=== PATIENT | male | born 1985 | race Hispanic/Latino ===

== ENCOUNTER 2018-10-15 21:38 | Emergency (ER) | payer MEDICAID ==
[2018-10-15] MEDS ORDERED: Albuterol-Ipratrop 3 mg / 0.5 (3 ml) UD INH STA (22:00)
--- NOTE | 2018-10-15 22:38 | ED PDOC ---
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 Patient reports having cough productive of clear sputum. Denies hemoptysis. He reports leg swelling that is ongoing for about a month ever since he became homeless and had to spend a lot of time walking. PMD: none Past Medical History Reviewed: Historical Data, Nursing Documentation, Vital Signs Vital Signs: Last Vital Signs Temp 98.8 F 10/15/18 21:42 Pulse 87 10/15/18 21:42 Resp 16 10/15/18 21:42 BP 140/72 10/15/18 21:42 Pulse Ox 98 10/15/18 21:42 Primary Care Provider: FAMILY PROVIDER,NO - Medical History PMH: Pulmonary Embolism (8 years ago) - Surgical History Other surgeries: Left knee meniscus repair - Family History Family History: States: Unknown Family Hx - Social History Alcohol: None Drugs: Denies - Home Medications Home Medications: Ambulatory Orders Medication Instructions Recorded Cetirizine HCl [Zyrtec] 10 mg PO DAILY #10 capsule 10/16/18 Albuterol HFA [Ventolin HFA 90 1 - 2 puff IH Q6 PRN #1 inhaler 10/18/18 mcg/actuation (8 g)] Albuterol HFA [Ventolin HFA 90 2 puff IH Q4H #1 puff 10/18/18 mcg/actuation (8 g)] Azithromycin 250 mg PO DAILY #4 tablet 10/18/18 Fluticasone/Salmeterol [Advair 1 each IH Q12 #1 blst.w.dev 10/18/18 250-50 Diskus] Methylprednisolone [Medrol] 4 mg PO ASDIR #1 pkg 10/18/18 - Allergies Allergies/Adverse Reactions: Allergies Allergy/AdvReac Type Severity Reaction Status Date / Time cefaclor [From [facility]] Allergy RASH Verified 10/16/18 12:50 Review of Systems ROS Statement: Except As Marked, All Systems Reviewed And Found Negative (as per HPI) Cardiovascular: Positive for: Chest Pain (Chest tightness) Respiratory: Positive for: Cough (productive of clear sputum), Shortness of Breath. Negative for: Hemoptysis Musculoskeletal: Positive for: Other (Leg swelling) Physical Exam - Reviewed Nursing Documentation Reviewed: Yes Vital Signs Reviewed: Yes - Physical Exam Appears: Positive for: In Acute Distress (Mild respiratory distress; morbidly obese) Head Exam: Positive for: ATRAUMATIC, NORMOCEPHALIC Skin: Positive for: Warm, Dry Eye Exam: Positive for: EOMI, PERRL Neck: Positive for: Painless ROM, Supple Cardiovascular/Chest: Positive for: Regular Rate, Rhythm (Regular rhythm), Tachycardia Respiratory: Positive for: Rhonchi (faint), Wheezing (scattered), Other (Episodes of hacking cough; distant breath sounds). Negative for: Rales Gastrointestinal/Abdominal: Positive for: Soft. Negative for: Tenderness Back: Positive for: Normal Inspection. Negative for: Decreased ROM Extremity: Positive for: Other (Bilateral lower leg 1+ pitting edema; venous stasis changes to the skin) Lymphatic: Negative for: Adenopathy Neurological/Psych: Positive for: Awake, Alert. Negative for: Motor/Sensory Deficits - Laboratory Results Result Diagrams: 10/15/18 22:30 10/15/18 22:30 - ECG ECG: Positive for: Interpreted By Me ECG Rhythm: Positive for: Normal QRS, Normal ST Segment, Sinus Rhythm (with low voltage) Rate: 86 O2 Sat by Pulse Oximetry: 98 (RA) Pulse Ox Interpretation: Normal Medical Decision Making Medical Decision Making: Initial Impression: Shortness of breath and cough Differential includes reactive airway disease, bronchitis, pneumonia, PE, and CHF Clinical Impression: Dyspnea Initial Plan: --Arterial blood gas shock panel stat --EKG --BNP --CMP --Magnesium stat --Phosphorous stat --TSH --Troponin --CBC --PTT --Prothrombin time --Albuterol 9mL INH --Solumedrol 125mg IV --Blood culture --Peak flow --Influenza A B stat Endorsed to Dr Retana pending ER workup reassessment and final ER disposition ------ Scribe Attestation: Documented by Maikol Pierre acting as a scribe for Nu Castle MD. Provider Scribe Attestation: All medical record entries made by the Scribe were at my direction and personally dictated by me. I have reviewed the chart and agree that the record accurately reflects my personal performance of the history, physical exam, medical decision making, and the department course for this patient. I have also personally directed, reviewed, and agree with the discharge instructions and disposition. Disposition - Clinical Impression Clinical Impression: Dyspnea - Disposition Disposition: Transfer of Care Disposition Time: 23:00 Condition: STABLE
[2018-10-15] MEDS ORDERED: Albuterol-Ipratrop 3 mg / 0.5 (3 ml) UD ONE (22:41)
[2018-10-15 22:46] LABS: BASO % 0.5 % (0.0-2.0); EOS # 0.3 K/uL (0.0-0.7); EOS % 3.2 % (0.0-4.0); LYMPH # 2.3 K/uL (1.0-4.3); LYMPH % 26.5 % (20.0-40.0); MEAN CELL VOLUME 87.7 fl (80.0-94.0); MEAN CORPUSCULAR HEMOGLOBIN 28.9 pg (27.0-31.0); MEAN CORPUSCULAR HGB CONC 32.9 g/dL (33.0-37.0); MEAN PLATELET VOLUME 8.2 fl (7.2-11.7); MONO # 0.5 K/uL (0.0-0.8); MONO % 6.1 % (0.0-10.0); NEUT # 5.6 K/uL (1.8-7.0); NEUT % 63.7 % (50.0-75.0); RBC 4.84 Mil/uL (4.40-5.90); RED CELL DISTRIBUTION WIDTH 13.6 % (11.5-14.5); WHITE BLOOD COUNT 8.7 K/uL (4.8-10.8)
[2018-10-15 22:56] LABS: PROTHROMBIN TIME 11.8 Seconds (9.8-13.1)
[2018-10-15 22:57] LABS: ALB/GLOB RATIO 1.4 (1.0-2.1); ALBUMIN 4.1 g/dL (3.5-5.0); ALT/SGPT 41 U/L (21-72); AST/SGOT 27 U/L (17-59); BLOOD UREA NITROGEN 18 mg/dl (9-20); CALCIUM 9.3 mg/dL (8.4-10.2); GFR NON-AFRICAN AMERICAN > 60
[2018-10-15 22:59] LABS: PARTIAL THROMBOPLASTIN TIME 35.7 Seconds (25.6-37.1)
[2018-10-15 23:11] LABS: B-TYPE NATRIURETIC PEPTIDE 71.9 pg/ml (0-450)
--- NOTE | 2018-10-15 23:11 | ED PDOC ---
- Laboratory Results Result Diagrams: 10/15/18 22:30 10/15/18 22:30 Lab Results: PT 11.8 Seconds (9.8-13.1) 10/15/18 22:30 INR 1.0 10/15/18 22:30 APTT 35.7 Seconds (25.6-37.1) 10/15/18 22:30 Total Bilirubin 0.4 mg/dl (0.2-1.3) 10/15/18 22:30 AST 27 U/L (17-59) 10/15/18 22:30 ALT 41 U/L (21-72) 10/15/18 22:30 Alkaline Phosphatase 66 U/L (38-126) 10/15/18 22:30 Total Protein 7.0 G/DL (6.3-8.2) 10/15/18 22:30 Albumin 4.1 g/dL (3.5-5.0) 10/15/18 22: Globulin 2.9 gm/dL (2.2-3.9) 10/15/18 22: Albumin/Globulin Ratio 1.4 (1.0-2.1) 10/15/18 22:30 - ECG O2 Sat by Pulse Oximetry: 98 (RA) Pulse Ox Interpretation: Normal Medical Decision Making Medical Decision Makin Patient care endorsed from Dr. Castle pending CT scan and re-evaluation. 0147 CTA OF THE CHEST WITH IV CONTRAST CLINICAL HISTORY: Chest pain. History of pulmonary embolus. TECHNIQUE: Axial and reformatted sagittal and coronal images of the chest obtained after bolus IV contrast administration. FINDINGS: Normal enhancement of the main pulmonary artery and right and left pulmonary arteries. Suboptimal enhancement of the bilateral peripheral pulmonary arteries, technical factors. There is no large central demonstrated pulmonary embolism. Normal thoracic aorta and visualized great vessels. There is no demonstrated aortic dissection. Normal heart and pericardium. Normal mediastinum. Normal hilar regions. Normal visualized trachea and bronchi. The lungs are well expanded. Normal pulmonary parenchyma. Normal pleura. Normal chest wall structures. Mild diffuse spondylosis. Mild hepatomegaly. Moderate splenomegaly measuring 16.3 cm. IMPRESSION: No demonstrated large central pulmonary embolism or arterial dissection. Electronically signed on October 16, 2018 1:37:20 AM EDT by: Wilfrido Jackson M.D., Certified by ABR, MSK, Neuroradiology 0153 Patient presents improvement in symptom and stable for discharge. Patient diagnosed with asthma exacerbation Scribe Attestation: Documented by Jamila Flaherty, acting as a scribe for Nikhil Retana MD Provider Scribe Attestation: All medical record entries made by the Scribe were at my direction and personally dictated by me. I have reviewed the chart and agree that the record accurately reflects my personal performance of the history, physical exam, medical decision making, and the department course for this patient. I have also personally directed, reviewed, and agree with the discharge instructions and disposition. Disposition - Clinical Impression Clinical Impression: Asthma exacerbation - POA Present On Arrival: None - Disposition Referrals: [facility] [Outside] Disposition: Routine/Home Disposition Time: 01:53 Condition: STABLE Prescriptions: Albuterol HFA [Ventolin HFA 90 mcg/actuation (8 g)] 1 - 2 puff IH Q6 PRN #1 inhaler PRN Reason: Shortness Of Breath Methylprednisolone [Medrol Dosepak] 4 mg PO ASDIR #1 pkg Instructions: Asthma in Adults Forms: [facility] (Serbian)
[2018-10-16] MEDS ORDERED: Iodixanol 320 MG/ML 100 ML BOTTLE IV ONE (00:06)
[2018-10-16] MEDS ORDERED: Sodium Chloride 0.9% 50 ML IV ONE (00:06)
[2018-10-16 00:30] LABS: ABG ALLEN TEST YES; ARTERIAL BLOOD GAS HCO3 29.5 mmol/L (21-28); ARTERIAL BLOOD GAS O2 SAT 97.3 % (95-98); ARTERIAL BLOOD GAS PCO2 46 mm/Hg (35-45); ARTERIAL BLOOD GAS PH 7.44 (7.35-7.45); ARTERIAL BLOOD GAS PO2 60 mm/Hg (80-100); ARTERIAL BLOOD GAS TCO2 32.6 mmol/L (22-28)
[2018-10-16 02:12] VITALS: BP 153/82; RESP 18; TEMP 98.2
[2018-10-16] MEDS ORDERED: Albuterol-Ipratrop 3 mg / 0.5 (3 ml) UD ONE (07:23)
--- NOTE | 2018-10-16 10:38 | CARD ---
APPROVED REPORT Date of service: 10/15/2018 EKG Measurement Heart [id number] <Conclusion> Normal sinus rhythm Low voltage QRS Borderline ECG
--- NOTE | 2018-10-16 14:27 | CT ---
Date of service: 10/16/2018 PROCEDURE: CT Chest with contrast (Pulmonary Angiogram) HISTORY: SOB h/o pulmonary embolism COMPARISON: None available. TECHNIQUE: Axial computed tomography images were obtained of the chest in the pulmonary arterial phase of enhancement. Coronal and sagittal reformatted images were created and reviewed. Intravenous contrast dose: 95 cc Visipaque 320 Radiation dose: Total exam DLP = 742.62 mGy-cm. This CT exam was performed using one or more of the following dose reduction techniques: Automated exposure control, adjustment of the mA and/or kV according to patient size, and/or use of iterative reconstruction technique. FINDINGS: Study is quite limited due to large body habitus and suboptimal opacification of the pulmonary arteries PULMONARY ARTERIES: The pulmonary trunk, right and left main, lobar and proximal segmental branches of the pulmonary arteries appear patent so far as can be seen with no definitive radiographic evidence of acute central pulmonary embolus. Note that the distal segmental and subsegmental branches are poorly delineated AORTA: No acute findings. No thoracic aortic aneurysm. No aortic atherosclerotic calcification or mural plaque present. LUNGS: 3.3 mm subpleural nodule right anterolateral upper lobe.. Follow-up CT scan in six months could be performed to assess stability. No acute infiltrates. PLEURAL SPACES: Unremarkable. No effusion or pneumothorax. HEART: Unremarkable. No cardiomegaly. No significant pericardial effusion. LYMPH NODES: No lymphadenopathy. BONES, CHEST WALL: Mild multilevel degenerative spondylosis of the thoracic spine. OTHER FINDINGS: Spleen is enlarged measuring over 16 cm in AP dimension. IMPRESSION: Limited study demonstrating no definitive radiographic evidence of acute central pulmonary embolus. 3.3 mm subpleural nodule right anterolateral upper lobe.. Follow-up CT scan in six months could be performed to assess stability. No acute infiltrates. Splenomegaly
[2018-10-17 00:50] VITALS: O2SAT 98
[2018-10-20 17:00] VITALS: PULSE 86
== END 2018-10-16 02:10 | disposition home or self-care (01) ==
LOC: H.ER 21:38
DX: R06.03 Acute respiratory distress (principal); J44.9 Chronic obstructive pulmonary disease, unspecified; J45.901 Unspecified asthma with (acute) exacerbation; Z59.0 Homelessness; Z79.899 Other long term (current) drug therapy; Z86.711 Personal history of pulmonary embolism; Z88.1 Allergy status to other antibiotic agents
CPT/HCPCS: 36600; 71275; 80053; 82803; 83735; 83880; 84100; 84443; 84484; 85025; 85610; 85730; 87040; 87804; 93005; 94640; 96374; 99284; J2930; Q9967

== ENCOUNTER 2018-10-16 06:31 | Emergency (ER) | payer MEDICAID ==
[2018-10-16] MEDS ORDERED: Albuterol-Ipratrop 3 mg / 0.5 (3 ml) UD IH STA ×2 (07:14→07:15)
--- NOTE | 2018-10-16 07:18 | ED PDOC ---
HPI: SOB/CHF/COPD Time Seen by Provider: 10/16/18 07:11 History Per: Patient Onset/Duration Of Symptoms: Days (2) Current Symptoms Are (Timing): Still Present Severity: Mild Additional Complaint(s): SOB assoc with wheezing and cough productive yellow sputum x 2-3 days. denies fever. seen last night with same with CT chest neg for PE. Improved with nebulizer txs. Past Medical History - Medical History PMH: Pulmonary Embolism (8 years ago) - Family History Family History: States: Unknown Family Hx - Home Medications Home Medications: Ambulatory Orders Medication Instructions Recorded Albuterol HFA [Ventolin HFA 90 1 - 2 puff IH Q6 PRN #1 inhaler 10/16/18 mcg/actuation (8 g)] Albuterol HFA [Ventolin HFA 90 2 puff IH Q4H #1 puff 10/16/18 mcg/actuation (8 g)] Cetirizine HCl [Zyrtec] 10 mg PO DAILY #10 capsule 10/16/18 Methylprednisolone [Medrol Dosepak] 4 mg PO ASDIR #1 pkg 10/16/18 Prednisone 50 mg PO DAILY #5 tab 10/16/18 - Allergies Allergies/Adverse Reactions: Allergies Allergy/AdvReac Type Severity Reaction Status Date / Time cefaclor [From [facility]] Allergy RASH Verified 10/15/18 21:43 Review of Systems ROS Statement: Except As Marked, All Systems Reviewed And Found Negative Respiratory: Positive for: Cough, Shortness of Breath, Wheezing Physical Exam - Reviewed Nursing Documentation Reviewed: Yes Vital Signs Reviewed: Yes - Physical Exam Appears: Positive for: Non-toxic, No Acute Distress Head Exam: Positive for: ATRAUMATIC, NORMAL INSPECTION, NORMOCEPHALIC Skin: Positive for: Normal Color, Warm, DRY Eye Exam: Positive for: EOMI, Normal appearance, PERRL ENT: Positive for: Normal ENT Inspection Neck: Positive for: Normal, Painless ROM Cardiovascular/Chest: Positive for: Regular Rate, Rhythm Respiratory: Positive for: Wheezing (Mild). Negative for: Respiratory Distress Gastrointestinal/Abdominal: Positive for: Normal Exam, Soft Back: Positive for: Normal Inspection Extremity: Positive for: Other (Erythema to pretibial area bialt. No calf tenderness) Neurological/Psych: Positive for: Awake, Alert, Normal Tone - Progress Re-evaluation Time: 10:49 Condition: Improved (feels better no SOB) Medical Decision Making Medical Decision Making: No evidence of PE on CT done earlier. Pulse ox 95% RA. Will add prednisone to inhaler with outpt f/u Disposition - Clinical Impression Clinical Impression: Bronchospasm - Patient ED Disposition Is Patient to be Admitted: No Counseled Patient/Family Regarding: Diagnosis, Need For Followup, Rx Given - Disposition Referrals: [facility] [Outside] Disposition: Routine/Home Disposition Time: 10:51 Condition: FAIR Prescriptions: Albuterol HFA [Ventolin HFA 90 mcg/actuation (8 g)] 2 puff IH Q4H #1 puff Cetirizine HCl [Zyrtec] 10 mg PO DAILY #10 capsule Prednisone 50 mg PO DAILY #5 tab Instructions: Asthma in Adults
[2018-10-16 08:00] VITALS: TEMP 98.9
[2018-10-16 10:06] VITALS: BP 130/60
[2018-10-16 11:33] VITALS: PULSE 78; RESP 18; O2SAT 95
--- NOTE | 2018-10-25 14:21 | CARD ---
APPROVED REPORT Date of service: 10/16/2018 EKG Measurement Heart [id number] <Conclusion> Normal sinus rhythm Low voltage QRS Borderline ECG
== END 2018-10-16 11:25 | disposition home or self-care (01) ==
LOC: H.ER 06:31
DX: J98.01 Acute bronchospasm (principal); Z86.711 Personal history of pulmonary embolism; Z88.1 Allergy status to other antibiotic agents

== ENCOUNTER 2018-10-16 12:28 | Observation (INO) | payer MEDICAID ==
[2018-10-16] MEDS ORDERED: Albuterol-Ipratrop 3 mg / 0.5 (3 ml) UD ONE (13:12)
[2018-10-16] MEDS ORDERED: Albuterol 0.083% Inhal Sol (2.5 mg/3 mL) UD INH STA (13:13)
[2018-10-16] MEDS ORDERED: Albuterol-Ipratrop 3 mg / 0.5 (3 ml) UD INH STA (13:14)
[2018-10-16] MEDS ORDERED: Albuterol 0.083% Inhal Sol (2.5 mg/3 mL) UD ONE ×2 (13:52→16:52)
[2018-10-16] MEDS ORDERED: Promethazine DM 6.25 mg-15 mg/5 ml Syrup PO STA (14:19)
--- NOTE | 2018-10-16 14:32 | ED PDOC ---
HPI: CCC, URI, Sore Throat Time Seen by Provider: 10/16/18 13:02 Chief Complaint (Nursing): Abdominal Pain Chief Complaint (Provider): Coughing History Per: Patient History/Exam Limitations: no limitations Onset/Duration Of Symptoms: Days Current Symptoms Are (Timing): Still Present Location Of Pain: None Associated Symptoms: Cough, Sputum, Vomiting. denies: Neck Pain, Sinus Drainage, Nasal Congestion, Nausea, Diarrhea Severity: Moderate Additional History Per: Patient Additional Complaint(s): 33 y/o male presents to the ED c/o persistent coughing and vomiting. Patient states he was discharged from ED an hour ago, and could not make it out of the ED due to shortness of breath and persistent cough. Patient was also seen on 10/15-10/16 for same and had full work-up including CT chest to rule PE and it was negative for PE. He states he has been coughing persistently since Wednesday, denies fever and chest pain. Denies abdominal pain, incontrary to triage note. Additionally patient lives in the care home in [place]. Past Medical History Vital Signs: Last Vital Signs Temp 98.1 F 10/16/18 12:46 Pulse 91 H 10/16/18 12:46 Resp 18 10/16/18 12:46 BP 138/93 H 10/16/18 12:46 Pulse Ox 95 10/16/18 12:46 Primary Care Provider: FAMILY PROVIDER,NO - Medical History PMH: Asthma, Pulmonary Embolism (8 years ago) - Family History Family History: States: Unknown Family Hx - Immunization History Hx Tetanus Toxoid Vaccination: No Hx Influenza Vaccination: No Hx Pneumococcal Vaccination: No - Home Medications Home Medications: Ambulatory Orders Medication Instructions Recorded Albuterol HFA [Ventolin HFA 90 1 - 2 puff IH Q6 PRN #1 inhaler 10/16/18 mcg/actuation (8 g)] Albuterol HFA [Ventolin HFA 90 2 puff IH Q4H #1 puff 10/16/18 mcg/actuation (8 g)] Cetirizine HCl [Zyrtec] 10 mg PO DAILY #10 capsule 10/16/18 Methylprednisolone [Medrol Dosepak] 4 mg PO ASDIR #1 pkg 10/16/18 Prednisone 50 mg PO DAILY #5 tab 10/16/18 Promethazine DM [Phenergan DM 5 ml PO Q6H PRN #100 ml 10/16/18 Syrup] - Allergies Allergies/Adverse Reactions: Allergies Allergy/AdvReac Type Severity Reaction Status Date / Time cefaclor [From [facility]] Allergy RASH Verified 10/16/18 12:50 Curb-65 Severity Score - CURB-65 Severity Score Confusion: No Bun >19mg/dl (>7mmol/L): No Respiratory Rate greater than/equal to 30: No Systolic BP <90 or Diastolic BP less than/equal 60mmHg: No Age >64: No Curb-65 Score: 0 Percentage 30-day mortality: 0.6% Review of Systems ROS Statement: Except As Marked, All Systems Reviewed And Found Negative Constitutional: Positive for: Weakness. Negative for: Fever, Chills, Malaise ENT: Negative for: Ear Pain, Ear Discharge, Nose Pain, Nose Discharge, Nose Congestion, Mouth Pain, Mouth Swelling, Throat Pain, Throat Swelling Cardiovascular: Negative for: Chest Pain, Palpitations, Light Headedness Respiratory: Positive for: Cough, Shortness of Breath, SOB with Exertion, Sputum (yellow/white sputum ), Wheezing. Negative for: Pleuritic Pain Gastrointestinal: Positive for: Vomiting. Negative for: Nausea, Diarrhea Skin: Negative for: Rash Neurological: Negative for: Dizziness Physical Exam - Reviewed Nursing Documentation Reviewed: Yes Vital Signs Reviewed: Yes - Physical Exam Appears: Positive for: Well, Non-toxic, No Acute Distress Head Exam: Positive for: ATRAUMATIC, NORMAL INSPECTION, NORMOCEPHALIC Skin: Positive for: Normal Color, Warm. Negative for: Rash (discoloration of lower extremity bilat- chronic ) Eye Exam: Positive for: Normal appearance, EOMI, PERRL. Negative for: Periorbital swelling, Periorbital tenderness, Conjunctival injection ENT: Positive for: Normal ENT Inspection. Negative for: Nasal Congestion Neck: Positive for: Normal, Painless ROM, Supple Cardiovascular/Chest: Positive for: Regular Rate, Rhythm Respiratory: Positive for: Rhonchi, Wheezing (scattered, expiratory wheezing ), Respiratory Distress (persistent cough). Negative for: Accessory Muscle Use, Crackles, Rales Pulses-Radial (L): 2+ Pulses-Radial (R): 2+ Gastrointestinal/Abdominal: Positive for: Normal Exam, Soft, Distended (patient is obese ). Negative for: Tenderness, Guarding Back: Positive for: Normal Inspection Extremity: Positive for: Normal ROM Neurological/Psych: Positive for: Awake, Alert, Normal Tone, Oriented - ECG O2 Sat by Pulse Oximetry: 95 Nebulizer Treatments/Peak Flow - Duonebs Number of Bronchodilator Doses given?: 3 - Steroid Treatment Steroid: Oral (patient given steriod in the last 24hrs) Medical Decision Making Medical Decision Making: duoneb x3 re-assess --Labs and previous imaging reviewed by me. Ct neg for PE or lung disease process. No further imaging or blood work needed at this time. Will treat symptoms of cough and wheezing with duonebs and re-assess 14:30 Patient had persistent cough, promethazine DM given. 15:15 Patient sleeping, no respiratory distress, no coughing. Will continue to monitor. 16:50 Lung sounds improved. Patient stable for discharge. Will add promethazine/dm to course of treatment. ED precautions given. Referral to [facility] given for follow-up. Patients states understanding and agrees with plan. D/C vitals Temp: 99.5 hr:96 rr: 20 b/p:133/89 o2sat: 95% rm air 17:00 Patient ambulated to bathroom and persistent cough started. patient feels short of breath, heavy breathing. States he can not catch his breath. Patient re- assess, continues to scattered breathing. O2sat: 86-87% after ambulation. Dr. Wilhelm re-examined patient at bedside. Patient to be admitted for OBS to medical service, dx asthma exacerbation, broncho spasms under hospitalist service, Dr. Donis aware. Albuterol x2 stat for coughing relief. Disposition - Clinical Impression Clinical Impression: Asthma exacerbation - Patient ED Disposition Is Patient to be Admitted: No Counseled Patient/Family Regarding: Diagnosis, Need For Followup, Rx Given - Disposition Referrals: [facility] [Outside] Disposition: Routine/Home Disposition Time: 16:05 Condition: IMPROVED Prescriptions: Promethazine DM [Phenergan DM Syrup] 5 ml PO Q6H PRN #100 ml PRN Reason: Cough Instructions: Asthma in Adults, Cough, Adult (DC) - POA Present On Arrival: None
--- NOTE | 2018-10-16 18:51 | CP.PCM.HP ---
<Fernando Mitchell - Last Filed: 10/16/18 20:00> History of Present Illness - History of Present Illness History of Present Illness: 33 yo M with pmhx of PE in ~2006 and 2010 (per pt 2/2 illicit drug use and treated) presents with SOB. Pt states that for 1 day, he has been experiencing SOB while at rest. Associated with dry cough. Pt also reports non bloody vomiting x 3. Pt denies recent strenuous activity, fever, chills, night sweats, sick contacts or recent travel. Pt was seen in the ER muliple times since 10/15. CT chest negative for PE. PMD: unknown Surg: L knee at age of 17 Soc: Pt smoked 1/2 pack per day for 16 years. Reports social alcohol. Reports illicit drug use; last use 6 months ago: Methamphetamine, heroin and cocaine. Famhx: unknown; adopted Rx: reconcilled Allergy to Cefaclor: hives Present on Admission - Present on Admission Any Indicators Present on Admission: Yes History of DVT/PE: Yes History of Uncontrolled Diabetes: No Urinary Catheter: No Review of Systems - Constitutional Constitutional: absent: Night Sweats - Respiratory Respiratory: Cough, Dyspnea, Wheezing - Gastrointestinal Gastrointestinal: absent: Abdominal Pain Past Patient History - Past Social History Smoking Status: Heavy Smoker > 10 Cigarettes Daily Alcohol: Social Drugs: Other (meth, heroin, cocaine late 2017) - PULMONARY Hx Asthma: Yes Hx Pulmonary Embolism: Yes (8 years ago) - PSYCHIATRIC Hx Substance Use: No Meds Home Medications: Home Medication List Medication Instructions Recorded Confirmed Type Promethazine DM [Phenergan DM 5 ml PO Q6H PRN #100 ml 10/16/18 Rx Syrup] Allergies/Adverse Reactions: Allergies Allergy/AdvReac Type Severity Reaction Status Date / Time cefaclor [From [facility]] Allergy RASH Verified 10/16/18 12:50 Physical Exam - Constitutional Appears: No Acute Distress - Eye Exam Eye Exam: EOMI - ENT Exam ENT Exam: Mucous Membranes Moist - Respiratory Exam Respiratory Exam: Wheezes (mid to lower lung alberts bilaterally). absent: Respiratory Distress - Cardiovascular Exam Cardiovascular Exam: REGULAR RHYTHM, +S1, +S2 - GI/Abdominal Exam GI & Abdominal Exam: Normal Bowel Sounds, Soft. absent: Tenderness - Neurological Exam Neurological exam: Alert, Oriented x3 - Psychiatric Exam Psychiatric exam: Normal Affect, Normal Mood Results - Vital Signs Recent Vital Signs: Last Vital Signs Temp 98.5 F 10/16/18 18:42 Pulse 96 H 10/16/18 18:42 Resp 20 10/16/18 18:42 BP 138/80 10/16/18 18:42 Pulse Ox 94 L 10/16/18 18:42 Assessment & Plan - Assessment and Plan (Free Text) Assessment: 33 yo M with pmhx of PE in ~2006 and 2010 (per pt 2/2 illicit drug use and treated) presents with SOB. Admitted for asthma exacerbation. Plan: Asthma exacerbation s/p methylprednisolone 125 mg IV in ER 10/15/2018 at 22:01; duoneb flu negative c/w methylprednisolone 60 mg q8hr and duoneb RQID monitor vitals: SOB, tachycardia f/u am labs DVT prophylaxis Lovenox 40 mg sq daily + SCD encourage ambulation -monitor for lower extremity pain. Case and plan d/w Dr. Gagandeep Mitchell MD PGY-2 <Monique Donis - Last Filed: 10/17/18 19:50> Results - Vital Signs Recent Vital Signs: Last Vital Signs Temp 98.6 F 10/17/18 16:09 Pulse 103 H 10/17/18 16:09 Resp 19 10/17/18 16:09 BP 129/80 10/17/18 16:09 Pulse Ox 95 10/17/18 16:01 - Labs Result Diagrams: 10/17/18 06:15 10/17/18 06:15 Labs: Laboratory Results - last 24 hr 10/17/18 10/17/18 06:15 06:15 WBC 9.9 RBC 5.00 Hgb 14.6 Hct 43.8 MCV 87.6 MCH 29.2 MCHC 33.4 RDW 13.8 Plt Count 205 Sodium 139 Potassium 4.2 Chloride 100 Carbon Dioxide 29 Anion Gap 14 BUN 15 Creatinine 0.7 L Est GFR ( Amer) > 60 Est GFR (Non-Af Amer) > 60 Random Glucose 149 H Calcium 9.4 Attending/Attestation - Attestation I have personally seen and examined this patient.: Yes I have fully participated in the care of the patient.: Yes I have reviewed all pertinent clinical information: Yes Notes (Text): 10/17/18 19:50 Agree with findings and plan as above
[2018-10-16] MEDS: Albuterol-Ipratrop 3 mg / 0.5 (3 ml) UD INH SCH (21:05)
[2018-10-17] MEDS ORDERED: methylPREDNISolone 60 MG in Sodium Chloride 0.9% 50 ML IV SCH (01:00)
[2018-10-17] MEDS ORDERED: Albuterol-Ipratrop 3 mg / 0.5 (3 ml) UD INH STA (03:25)
[2018-10-17 06:57] LABS: HEMOGLOBIN 14.6 g/dL (12.0-18.0); MEAN CELL VOLUME 87.6 fl (80.0-94.0); MEAN CORPUSCULAR HEMOGLOBIN 29.2 pg (27.0-31.0); MEAN CORPUSCULAR HGB CONC 33.4 g/dL (33.0-37.0); RED CELL DISTRIBUTION WIDTH 13.8 % (11.5-14.5); WHITE BLOOD COUNT 9.9 K/uL (4.8-10.8)
[2018-10-17 07:07] LABS: BLOOD UREA NITROGEN 15 mg/dl (9-20); CALCIUM 9.4 mg/dL (8.4-10.2); GFR NON-AFRICAN AMERICAN > 60
[2018-10-17] MEDS: Albuterol-Ipratrop 3 mg / 0.5 (3 ml) UD INH SCH ×4 (07:49→19:14)
--- NOTE | 2018-10-17 09:42 | CP.PCM.PN ---
<Lionel Roy - Last Filed: 10/17/18 12:28> Subjective - Date & Time of Evaluation Date of Evaluation: 10/17/18 Time of Evaluation: 08:23 - Subjective Subjective: Patient seen and examined this AM, NAD. Patient c/o of some SOB. Denies DA SILVA, CP, fever, palpitations, abdominal pain, N/V/D or other acute complaint at present. Afebrile. Objective - Vital Signs/Intake and Output Vital Signs (last 24 hours): Temp Pulse Resp BP Pulse Ox 98.5 F 105 H 20 153/78 H 95 10/17/18 08:21 10/17/18 08:21 10/17/18 08:21 10/17/18 08:21 10/17/18 08:21 - Medications Medications: Current Medications Albuterol/Ipratropium (Duoneb 3 Mg/0.5 Mg (3 Ml) Ud) 3 ml INH RQID [facility] Last Admin: 10/17/18 07:49 Dose: 3 ml Enoxaparin Sodium (Lovenox) 40 mg SC DAILY NICK; Protocol Methylprednisolone (Solu-Medrol) 60 mg IV Q8H [facility] Last Admin: 10/17/18 00:20 Dose: 60 mg - Labs Labs: 10/17/18 06:15 10/17/18 06:15 - Additional Findings Additional findings: - Constitutional Appears: No Acute Distress - Eye Exam Eye Exam: EOMI - ENT Exam ENT Exam: Mucous Membranes Moist - Respiratory Exam Respiratory Exam: Prolong expiratory phase, diffuse rhochi, no wheezing noted. absent: Respiratory Distress - Cardiovascular Exam Cardiovascular Exam: REGULAR RHYTHM, +S1, +S2 - GI/Abdominal Exam GI & Abdominal Exam: Normal Bowel Sounds, Soft. absent: Tenderness - Neurological Exam Neurological exam: Alert, Oriented x3 - Psychiatric Exam Psychiatric exam: Normal Affect, Normal Mood Assessment and Plan - Assessment and Plan (Free Text) Assessment: 33 yo M with pmhx of PE in ~2006 and 2010 (per pt 2/2 illicit drug use and treated) presents with SOB. Admitted for asthma exacerbation. Plan: Asthma exacerbation s/p methylprednisolone 125 mg IV in ED 10/15/2018 given duoneb QID flu negative c/w methylprednisolone 60 mg q8hr and duoneb RQID monitor vitals: SOB, tachycardia CBC WNL f/u labs DC planning tomorrow DVT prophylaxis Lovenox 40 mg sq daily + SCD encourage ambulation monitor for lower extremity pain. <Monique Donis - Last Filed: 10/17/18 19:49> Objective - Vital Signs/Intake and Output Vital Signs (last 24 hours): Temp Pulse Resp BP Pulse Ox 98.6 F 103 H 19 129/80 95 10/17/18 16:09 10/17/18 16:09 10/17/18 16:09 10/17/18 16:09 10/17/18 16:01 - Medications Medications: Current Medications Albuterol/Ipratropium (Duoneb 3 Mg/0.5 Mg (3 Ml) Ud) 3 ml INH RQID [facility] Last Admin: 10/17/18 19:14 Dose: 3 ml Enoxaparin Sodium (Lovenox) 40 mg SC DAILY NICK; Protocol Last Admin: 10/17/18 09:48 Dose: 40 mg Azithromycin 500 mg/ Sodium (Chloride) 250 mls @ 250 mls/hr IVPB DAILY NICK; Protocol Last Admin: 10/17/18 18:15 Dose: 250 mls/hr Methylprednisolone (Solu-Medrol) 60 mg IV Q8H [facility] Last Admin: 10/17/18 16:04 Dose: 60 mg - Labs Labs: 10/17/18 06:15 10/17/18 06:15 Attending/Attestation - Attestation I have personally seen and examined this patient.: Yes I have fully participated in the care of the patient.: Yes I have reviewed all pertinent clinical information, including history, physical exam and plan: Yes Notes (Text): 10/17/18 19:49 Agree with findings and plan as above
[2018-10-17] MEDS: Enoxaparin 40 mg Syringe SC SCH (09:48)
[2018-10-17] MEDS: Azithromycin 500 MG in Sodium Chloride 0.9% 250 ML IVPB SCH (18:15)
[2018-10-17] MEDS: FLUTICASONE PROPION/SALMETEROL 113-14 IH SCH (20:26)
[2018-10-18 08:05] VITALS: BP 152/90; PULSE 87; RESP 20; TEMP 97.5; O2SAT 93
[2018-10-18] MEDS: Albuterol-Ipratrop 3 mg / 0.5 (3 ml) UD INH SCH (08:12)
[2018-10-18] MEDS: Azithromycin 500 MG in Sodium Chloride 0.9% 250 ML IVPB SCH (09:38)
[2018-10-18] MEDS: Enoxaparin 40 mg Syringe SC SCH (09:42)
[2018-10-18] MEDS: FLUTICASONE PROPION/SALMETEROL 113-14 IH SCH (09:43)
--- NOTE | 2018-10-18 10:09 | CP.PCM.DIS ---
<Lionel Roy - Last Filed: 10/18/18 12:15> Provider - Provider Date of Admission: 10/16/18 16:57 Attending physician: Monique Donis DO Consults: 10/17/18 09:00 Social Work Referral Routine Comment: homeless Physician Instructions: Reason For Exam: pt homeless Time Spent in preparation of Discharge (in minutes): 33 Diagnosis - Discharge Diagnosis (1) Acute bronchitis Status: Acute (2) Asthma exacerbation Status: Acute (3) Bronchospasm Status: Acute Hospital Course - Lab Results Lab Results: Most Recent Lab Values WBC 9.9 K/uL (4.8-10.8) 10/17/18 06:15 RBC 5.00 Mil/uL (4.40-5.90) 10/17/18 06:15 Hgb 14.6 g/dL (12.0-18.0) 10/17/18 06:15 Hct 43.8 % (35.0-51.0) 10/17/18 06:15 MCV 87.6 fl (80.0-94.0) 10/17/18 06:15 MCH 29.2 pg (27.0-31.0) 10/17/18 06:15 MCHC 33.4 g/dL (33.0-37.0) 10/17/18 06:15 RDW 13.8 % (11.5-14.5) 10/17/18 06:15 Plt Count 205 K/uL (130-400) 10/17/18 06:15 Sodium 139 mmol/l (132-148) 10/17/18 06:15 Potassium 4.2 MMOL/L (3.6-5.0) 10/17/18 06:15 Chloride 100 mmol/L (98-107) 10/17/18 06:15 Carbon Dioxide 29 mmol/L (22-30) 10/17/18 06:15 Anion Gap 14 (10-20) 10/17/18 06:15 BUN 15 mg/dl (9-20) 10/17/18 06:15 Creatinine 0.7 mg/dl (0.8-1.5) L 10/17/18 06:15 Est GFR ( Amer) > 60 10/17/18 06:15 Est GFR (Non-Af Amer) > 60 10/17/18 06:15 Random Glucose 149 mg/dL (75-110) H 10/17/18 06:15 Calcium 9.4 mg/dL (8.4-10.2) 10/17/18 06:15 - Hospital Course Hospital Course: 33 yo M with pmhx of PE in ~2006 and 2010 (per pt 2/2 illicit drug use and treated) as per patient history. Patient presented with c/o SOB x 1 day, he repoerted he has been experiencing SOB while at rest, associated with dry cough and non bloody vomiting x 3 at home. Pt denied recent strenuous activity, fever, chills, night sweats, sick contacts or recent travel. CT chest negative for PE. During hospital course patient remained afebrile, clinically stable, hemodicnamically stable, VS stable. CBC normal, Chem unremarkable for significnat abnormalities. Patient remains afebrile, clinically stable to be discharge home. Impression: Acute bronchitis. Plan: continue treatment outpatient with Azithromicin 250 PO Qd x 4 doses, Ventolinn sp, Advair disk, medrol andreia. Discharge Exam - Head Exam Head Exam: ATRAUMATIC, NORMAL INSPECTION, NORMOCEPHALIC - Eye Exam Eye Exam: EOMI - ENT Exam ENT Exam: Mucous Membranes Moist - Respiratory Exam Respiratory Exam: Clear to PA & Lateral, Prolonged Expiratory Phase - Cardiovascular Exam Cardiovascular Exam: REGULAR RHYTHM - GI/Abdominal Exam GI & Abdominal Exam: Normal Bowel Sounds, Soft - Neurological Exam Neurological exam: Alert, CN II-XII Intact, Oriented x3 - Psychiatric Exam Psychiatric exam: Normal Affect - Skin Skin Exam: Normal Color, Warm Discharge Plan - Discharge Medications Prescriptions: Albuterol HFA [Ventolin HFA 90 mcg/actuation (8 g)] 1 - 2 puff IH Q6 PRN #1 inhaler PRN Reason: Shortness Of Breath Albuterol HFA [Ventolin HFA 90 mcg/actuation (8 g)] 2 puff IH Q4H #1 puff Azithromycin 250 mg PO DAILY #4 tablet Fluticasone/Salmeterol [Advair 250-50 Diskus] 1 each IH Q12 #1 blst.w.dev Methylprednisolone [Medrol] 4 mg PO ASDIR #1 pkg - Follow Up Plan Condition: IMPROVED Disposition: HOME/ ROUTINE Instructions: Asthma, Adult (DC), Cough, Adult (DC), Fever, Adult (DC) Additional Instructions: follow up with primary MD/[facility] within 1 week Continue taking your medications as prescribed ED precautions given: GO to the ED if your condition recurs, you have chest pain, shortness of breath fever, or other new symptoms of concern presents Referrals: [facility] [Outside] <Monique Donis - Last Filed: 10/19/18 19:19> Provider - Provider Date of Admission: 10/16/18 16:57 Attending physician: Monique Donis DO Consults: 10/17/18 09:00 Social Work Referral Routine Comment: homeless Physician Instructions: Reason For Exam: pt [facility] Hospital Course - Lab Results Lab Results: Most Recent Lab Values WBC 9.9 K/uL (4.8-10.8) 10/17/18 06:15 RBC 5.00 Mil/uL (4.40-5.90) 10/17/18 06:15 Hgb 14.6 g/dL (12.0-18.0) 10/17/18 06:15 Hct 43.8 % (35.0-51.0) 10/17/18 06:15 MCV 87.6 fl (80.0-94.0) 10/17/18 06:15 MCH 29.2 pg (27.0-31.0) 10/17/18 06:15 MCHC 33.4 g/dL (33.0-37.0) 10/17/18 06:15 RDW 13.8 % (11.5-14.5) 10/17/18 06:15 Plt Count 205 K/uL (130-400) 10/17/18 06:15 Sodium 139 mmol/l (132-148) 10/17/18 06:15 Potassium 4.2 MMOL/L (3.6-5.0) 10/17/18 06:15 Chloride 100 mmol/L (98-107) 10/17/18 06:15 Carbon Dioxide 29 mmol/L (22-30) 10/17/18 06:15 Anion Gap 14 (10-20) 10/17/18 06:15 BUN 15 mg/dl (9-20) 10/17/18 06:15 Creatinine 0.7 mg/dl (0.8-1.5) L 10/17/18 06:15 Est GFR ( Amer) > 60 10/17/18 06:15 Est GFR (Non-Af Amer) > 60 10/17/18 06:15 Random Glucose 149 mg/dL (75-110) H 10/17/18 06:15 Calcium 9.4 mg/dL (8.4-10.2) 10/17/18 06:15 Attending/Attestation - Attestation I have personally seen and examined this patient.: Yes I have fully participated in the care of the patient.: Yes I have reviewed all pertinent clinical information, including history, physical exam and plan: Yes Notes (Text): Agree with findings and plan as above.
== END 2018-10-18 12:09 | disposition home or self-care (01) ==
LOC: H.ER 12:28 → H.ERHOLD 16:57 → H.MEDSURG1 18:40
PROVIDERS: ADMIT Student in an Organized Health Care Education/Training Program; ATTEND Student in an Organized Health Care Education/Training Program
DX: J20.9 Acute bronchitis, unspecified (principal); J45.901 Unspecified asthma with (acute) exacerbation; Z86.711 Personal history of pulmonary embolism; F17.210 Nicotine dependence, cigarettes, uncomplicated
CPT/HCPCS: 36415; 80048; 85027; 94150; 94640; 99285; J0456; J1650; J2930; J7050